=== PATIENT | male | born 2000 | race Asian ===

== ENCOUNTER 2022-08-19 07:44 | Day surgery (SDC) | payer OTHER ==
[2022-08-19] VITALS (220 sets, daily range): BP systolic 89–131; BP diastolic 50–95
[~2022-08-19] VITALS: Ht 177.8 cm; Wt 45.0 kg
[2022-08-19 07:43] LABS: HEMATOCRIT 32.6 % (39.0-50.0); HEMOGLOBIN 10.7 g/dl (14.0-18.0); IMMATURE GRANULOCYTES 0.1 % (0.0-5.0); MEAN CELL VOLUME 61.7 fL CALC (80.0-100.0); MEAN CORPUSCULAR HGB 20.3 pG CALC (26.0-32.0); MEAN CORPUSCULAR HGB CONC 32.8 g/dL CAL (32.0-36.0); NEUT# 4.95 thou/uL (1.82-7.42); RED BLOOD COUNT 5.28 mill/uL (4.70-6.10); RED CELL DISTRI WIDTH 15.3 % (11.5-15.5)
[2022-08-19 07:56] LABS: ALBUMIN 4.5 g/dL (3.2-5.0); ALKALINE PHOSPHATASE 70 u/l (38-126); ANION GAP 14 (6-22 (CALC)); BILIRUBIN, TOTAL 0.3 mg/dL (0.0-1.4); BUN 11 mg/dL (9-20); BUN/CREATININE RATIO 16 (12-20 (CALC)); CARBON DIOXIDE 29 mmol/l (22-30); CHLORIDE 101 mmol/l (95-108); CREATININE 0.7 mg/dL (0.7-1.3); GFR FOR AFR.AMER. > 60 ML/MIN (>=60 (CALC)); GFR OTHER RACES > 60 ML/MIN (>=60 (CALC)); POTASSIUM 4.2 mmol/l (3.5-5.1); SGOT/AST 23 u/l (17-59); SODIUM 140 mmol/l (137-146); TOTAL PROTEIN 7.5 g/dL (6.3-8.2)
[2022-08-19] MEDS ORDERED: NALTREXONE50 MG PO (12:58)
[2022-08-19] MEDS ORDERED: KLONOPIN2 MG PO (12:59)
[2022-08-19] MEDS ORDERED: CLONIDINE0.1 MG PO (12:59)
[2022-08-20 03:38] VITALS: BP 110/73
[2022-08-20 05:55] LABS: HEMATOCRIT 31.6 % (39.0-50.0); HEMOGLOBIN 10.8 g/dl (14.0-18.0); IMMATURE GRANULOCYTES 0.4 % (0.0-5.0); MEAN CELL VOLUME 59.6 fL CALC (80.0-100.0); MEAN CORPUSCULAR HGB 20.4 pG CALC (26.0-32.0); MEAN CORPUSCULAR HGB CONC 34.2 g/dL CAL (32.0-36.0); NEUT# 6.64 thou/uL (1.82-7.42); RED BLOOD COUNT 5.3 mill/uL (4.70-6.10)
[2022-08-20 06:22] LABS: ALBUMIN 4.2 g/dL (3.2-5.0); ALKALINE PHOSPHATASE 74 u/l (38-126); BUN 10 mg/dL (9-20); BUN/CREATININE RATIO 15 (12-20 (CALC)); CHLORIDE 104 mmol/l (95-108); CREATININE 0.7 mg/dL (0.7-1.3); GFR FOR AFR.AMER. > 60 ML/MIN (>=60 (CALC)); GFR OTHER RACES > 60 ML/MIN (>=60 (CALC)); MAGNESIUM 2.2 mg/dL (1.6-2.3); POTASSIUM 3.6 mmol/l (3.5-5.1); SGOT/AST 24 u/l (17-59); SODIUM 139 mmol/l (137-146); TOTAL PROTEIN 7.3 g/dL (6.3-8.2)
[2022-08-20 06:31] LABS: ANION GAP 16 (6-22 (CALC)); BILIRUBIN, TOTAL 0.5 mg/dL (0.0-1.4); CARBON DIOXIDE 23 mmol/l (22-30)
[2022-08-20 06:54] VITALS: BP 112/58
[2022-08-20 10:32] VITALS: BP 148/61
== END 2022-08-20 15:47 | disposition home or self-care (01) | DRG 897 ==
LOC: ANR 07:44 → MS2 07:44 → ANR 08-20 15:47
PROVIDERS: ATTEND Anesthesiology
DX: F11.20 Opioid dependence, uncomplicated (principal)
CPT/HCPCS: J2354